=== PATIENT | female | born 1975 | race Hispanic/Latino ===

== ENCOUNTER 2018-01-24 14:09 | Outpatient (CLI) | payer BC | END 2018-01-24 14:10 | disposition home or self-care (01) | LOC: BICMAMMO 14:09 | PROVIDERS: ATTEND Obstetrics & Gynecology | DX: Z12.31 Encounter for screening mammogram for malignant neoplasm of breast (principal) | CPT/HCPCS: 77063; 77067 ==

== ENCOUNTER 2019-03-11 11:26 | Outpatient (CLI) | payer BC ==
--- NOTE | 2019-03-11 13:22 | MMO ---
Bilateral MAMMO Bilat Screen [facility]. CLINICAL HISTORY: Patient is 43 years old and is seen for screening. The patient has no family history of breast cancer. The patient has no personal history of cancer. VIEWS: The views performed were: bilateral craniocaudal with tomosynthesis and bilateral mediolateral oblique with tomosynthesis. FILMS COMPARED: The present examination has been compared to a prior imaging study performed at [facility] on 01/24/2018. MAMMOGRAM FINDINGS: The breasts are heterogeneously dense, which could obscure a lesion on mammography. There are no suspicious masses, suspicious calcifications, or new areas of architectural distortion. IMPRESSION: THERE IS NO MAMMOGRAPHIC EVIDENCE OF MALIGNANCY. A ROUTINE FOLLOW-UP MAMMOGRAM IN 1 YEAR IS RECOMMENDED. THE RESULTS OF THIS EXAM WERE SENT TO THE PATIENT. ACR BI-RADS Category 1 - Negative MAMMOGRAPHY NOTE: 1. A negative mammogram report should not delay a biopsy if a dominant of clinically suspicious mass is present. 2. Approximately 10% to 15% of breast cancers are not detected by mammography. 3. Adenosis and dense breasts may obscure an underlying neoplasm.
== END 2019-03-11 11:27 | disposition home or self-care (01) ==
LOC: BICMAMMO 11:26
PROVIDERS: ATTEND Obstetrics & Gynecology
DX: Z12.31 Encounter for screening mammogram for malignant neoplasm of breast (principal)
CPT/HCPCS: 77063; 77067

== ENCOUNTER 2019-12-27 07:49 | Emergency (ER) | payer BC ==
[2019-12-27] MEDS ORDERED: Ondansetron PF 4 MG/2 ML Vial ONE (08:15)
[2019-12-27] MEDS ORDERED: Fentanyl 100 MCG/2 ML VIAL ONE (08:15)
[2019-12-27] MEDS ORDERED: Ketorolac Tromethamine 30 MG/ML VIAL ONE (08:15)
[2019-12-27 08:25] LABS: BHCG - Serum Negative (NEGATIVE); Pregs Control Background? CLEAR/WHITE (CLR/WHITE); Pregs Control Bar Appear? YES (CONTROL BAR)
[2019-12-27 08:35] LABS: Bilirubin Negative (Negative); Blood, Urine Large (Negative); Glucose, Urine (Dipstick) Negative (Negative); Leukocyte Small (Negative); Nitrite Negative (Negative); Protein, Urine (Dipstick) 100 mg/dL (Neg-Trace); Urobilinogen 0.2 mg/dL (Less than 2)
[2019-12-27 08:37] LABS: ALT (SGPT) 31 U/L (8-55); AST (SGOT) 21 U/L (5-34); Albumin 4.6 g/dL (3.5-5.0); Alkaline Phosphatase 108 U/L (40-110); Anion Gap 13 mmol/L (10-20); BUN (Urea Nitrogen) 16 mg/dL (7.0-18.7); Bilirubin, Total 0.5 mg/dL (0.2-1.2); Calc. Creatinine Clearance 0 mL/min (70-130); Calcium 9.4 mg/dL (7.8-10.44); Carbon Dioxide 24 mmol/L (22-29); Chloride 108 mmol/L (98-107); Estimated GFR-MDRD Greater than 90; Globulin 2.6 g/dL (2.4-3.5); Glucose 133 mg/dL (70-105); Lipase 30 U/L (8-78); Potassium 3.9 mmol/L (3.5-5.1); Protein, Total 7.2 g/dL (6.0-8.3); Sodium 141 mmol/L (136-145)
[2019-12-27 08:49] LABS: Clarity Hazy (Clear)
[2019-12-27 08:51] LABS: Bacteria/HPF 2+ HPF (None Seen); Other Microscopic Description Less than 2 mL rec'd
[2019-12-27 09:07] LABS: #Eosinphils 0.1 thou/uL (0.0-0.7); #Lymphocytes 2.5 thou/uL (1.20-3.40); #Monocytes 0.4 thou/uL (0.11-0.59); %Basophils 0.3 % (0.0-1.0); %Eosinophils 1.7 % (0.0-10.0); %Lymphocytes 31.1 % (21.0-51.0); %Monocytes 5.2 % (0.0-10.0); %Neutrophils 61.6 % (42.0-75.0); Hemoglobin 12.2 g/dL (12.0-16.0); MDiff Complete? YES; Mean Corpuscular HGB CONC 33.3 g/dL (32.0-36.0); Mean Corpuscular Hemoglobin 19.7 pg (27.0-31.0); Mean Corpuscular Volume 59.2 fL (78.0-98.0); Mean Platelet Volume 7.2 fL (7.4-10.4); Microcytosis MODERATE=15-30 cells (100X) (0-5/hpf); Ovalocytes SLIGHT = 2-5 cells (100X) (0-1/hpf); Platelet Count 261 thou/uL (130-400); RBC Distribution Width 14.9 % (11.5-14.5); Red Blood Cell (RBC) Count 6.18 mill/uL (4.20-5.40); Reflex for Review?? YES; White Blood Cell (WBC) Count 8.1 thou/uL (4.8-10.8)
--- NOTE | 2019-12-27 09:16 | CT ---
CT Stone Protocol: 12/27/2019 8:11 AM HISTORY: Abdominal pain COMPARISON: None. TECHNIQUE: Multiple contiguous axial images were obtained and a CT of the abdomen and pelvis without IV contrast . Coronal and sagittal reformats were performed. FINDINGS: This examination is limited for the evaluation of solid organs and vascular structures due to the lac k of intravenous contrast. Lower Chest: within normal limits. Abdomen: Liver: within normal limits. Bile Ducts: Normal caliber. Gallbladder: No calcified gallstones. Normal caliber wall. Pancreas: within normal limits. Spleen: within normal limits. Adrenals: within normal limits. Kidneys: Mild right hydronephrosis. No left hydronephrosis. 1.5 cm cyst emanates from the midportion of the left kidney. Pelvis: Reproductive Organs: No pelvic masses. Ureters: There is a 3 mm calcification at the right ureterovesical junction causing mild right hydrou reter. Bladder: within normal limits. Bowel: Normal caliber. Mesenteric Lymph Nodes: No enlarged mesenteric lymph nodes. Peritoneum: No ascites or free air, no fluid collection. Vessels: Normal caliber aorta Retroperitoneum: within normal limits. Abdominal Wall: within normal limits. Bones: Unremarkable. IMPRESSION: Right distal ureteral calcification with mild right hydronephrosis.
== END 2019-12-27 09:45 | disposition home or self-care (01) ==
LOC: ERS 07:49
DX: N13.2 Hydronephrosis with renal and ureteral calculous obstruction (principal)
CPT/HCPCS: 74176; 80053; 81003; 81015; 83690; 84703; 85025; 85060; 96361; 96374; 96375; J1885; J2405; J3010

== ENCOUNTER 2020-05-17 11:07 | Outpatient (CLI) | payer BC ==
--- NOTE | 2020-05-17 11:58 | MMO ---
Bilateral MAMMO Bilat Screen [facility]. CLINICAL HISTORY: Patient is 44 years old and is seen for screening. The patient has no family history of breast cancer. The patient has no personal history of cancer. VIEWS: The views performed were: bilateral craniocaudal with tomosynthesis and bilateral mediolateral oblique with tomosynthesis. FILMS COMPARED: The present examination has been compared to prior imaging studies performed at [facility] on 01/24/2018 and 03/11/2019. This study has been interpreted with the assistance of computer-aided detection. MAMMOGRAM FINDINGS: The breasts are heterogeneously dense, which could obscure a lesion on mammography. There is an asymmetry seen in the CC view only seen in the inner region of the right breast. In the left breast, there are no suspicious masses, calcifications or areas of architectural distortion. IMPRESSION: ASYMMETRY IN THE RIGHT BREAST REQUIRES ADDITIONAL EVALUATION. RECOMMEND DIAGNOSTIC MAMMOGRAM. ULTRASOUND MAY ALSO PROVE USEFUL AT RECALL. THE RESULTS OF THIS EXAM WERE SENT TO THE PATIENT. ACR BI-RADS Category 0 - Incomplete: Need additional imaging evaluation. [facility] will notify the patient of the need for additional imaging services. MAMMOGRAPHY NOTE: 1. A negative mammogram report should not delay a biopsy if a dominant of clinically suspicious mass is present. 2. Approximately 10% to 15% of breast cancers are not detected by mammography. 3. Adenosis and dense breasts may obscure an underlying neoplasm. Reported by: RIVERA MOSLEY MD Electonically Signed: [id number]
== END 2020-05-17 11:08 | disposition home or self-care (01) ==
LOC: BICMAMMO 11:07
PROVIDERS: ATTEND Family Medicine
DX: Z12.31 Encounter for screening mammogram for malignant neoplasm of breast (principal); N64.89 Other specified disorders of breast
CPT/HCPCS: 77063; 77067

== ENCOUNTER 2020-05-20 10:29 | Outpatient (CLI) | payer BC ==
--- NOTE | 2020-05-20 11:02 | MMO ---
Right Breast MAMMO Unilat Diag [facility]. CLINICAL HISTORY: Patient is 44 years old and is seen for diagnostic exam. The patient has no family history of breast cancer. The patient has no personal history of cancer. VIEWS: The views performed were: right craniocaudal spot compression with tomosynthesis and right mediolateral with tomosynthesis. FILMS COMPARED: The present examination has been compared to prior imaging studies performed at [facility] on 01/24/2018, 03/11/2019 and 05/17/2020. This study has been interpreted with the assistance of computer-aided detection. MAMMOGRAM FINDINGS: The breast is heterogeneously dense, which could obscure a lesion on mammography. Additional views were performed. The previously seen abnormality is not definitely seen on the current study. There are no suspicious masses, suspicious calcifications, or new areas of architectural distortion. IMPRESSION: THERE IS NO MAMMOGRAPHIC EVIDENCE OF MALIGNANCY. A ROUTINE FOLLOW-UP MAMMOGRAM IN 1 YEAR IS RECOMMENDED. THE RESULTS OF THIS EXAM WERE SENT TO THE PATIENT. ACR BI-RADS Category 2 - Benign finding MAMMOGRAPHY NOTE: 1. A negative mammogram report should not delay a biopsy if a dominant of clinically suspicious mass is present. 2. Approximately 10% to 15% of breast cancers are not detected by mammography. 3. Adenosis and dense breasts may obscure an underlying neoplasm. Reported by: JUAN LUIS BOYD MD Electonically Signed: [id number]
== END 2020-05-20 10:30 | disposition home or self-care (01) ==
LOC: BICMAMMO 10:29
PROVIDERS: ATTEND Family Medicine
DX: N64.89 Other specified disorders of breast (principal)
CPT/HCPCS: G0279

== ENCOUNTER 2020-08-30 06:59 | Outpatient (CLI) | payer BC ==
--- NOTE | 2020-08-30 07:37 | ULT ---
Ultrasound of [facility] upper quadrant: 08/30/2020 COMPARISON:None available HISTORY:Right upper quadrant/epigastric pain, gas TECHNIQUE: Multiplanar grayscale sonographic imaging of [facility] upper quadrant provided FINDINGS:Visualized pancreas unremarkable. Pancreatic tail obscured by bowel gas. No focal liver lesi on or intrahepatic biliary dilatation. The common bile duct measures 3 mm, within normal limits. No gallbladder wall thickening or gallstones. The right kidney measures 11.2 cm in craniocaudal dimensio n and demonstrates no stone, hydronephrosis, or mass lesion. The autotransfusionist reports a negative Dobbs's sign. The hepatic parenchyma is mildly echogenic, suggesting a degree of steatosis. IMPRESSION:No sonographic evidence of cholelithiasis, cholecystitis, or biliary dilatation.
== END 2020-08-30 07:00 | disposition home or self-care (01) ==
LOC: BICULT 06:59
PROVIDERS: ATTEND Internal Medicine Gastroenterology
DX: R10.13 Epigastric pain (principal); R14.2 Eructation
CPT/HCPCS: 76705

== ENCOUNTER 2021-03-23 07:52 | Outpatient (CLI) | payer BC ==
[2021-03-23] MEDS ORDERED: Iopamidol-370 76% 500 ML 1 ML ONE (14:43)
== END 2021-03-23 07:53 | disposition home or self-care (01) ==
LOC: BICCT 07:52
PROVIDERS: ATTEND Family Medicine
DX: N28.89 Other specified disorders of kidney and ureter (principal); N28.1 Cyst of kidney, acquired; N83.201 Unspecified ovarian cyst, right side
CPT/HCPCS: 74178; Q9967

== ENCOUNTER 2021-07-07 15:45 | Outpatient (CLI) | payer BC | END 2021-07-07 15:46 | disposition home or self-care (01) | LOC: TBSIIMAG 15:45 → BICMRI 15:46 | PROVIDERS: ATTEND Orthopaedic Surgery | DX: M25.561 Pain in right knee (principal); M22.41 Chondromalacia patellae, right knee ==

== ENCOUNTER 2022-04-20 13:15 | Outpatient (CLI) | payer BC | END 2022-04-20 13:16 | disposition home or self-care (01) | LOC: CANPRECLI → TBSIIMAG 13:15 | PROVIDERS: ATTEND Specialist | DX: M54.12 Radiculopathy, cervical region (principal) | CPT/HCPCS: 72141 ==

== ENCOUNTER 2022-04-24 10:13 | Outpatient (CLI) | payer BC ==
[2022-04-24 11:49] LABS: #Eosinphils 0.1 10x3/uL (0.0-0.5); #Monocytes 0.3 10x3/uL (0.0-1.1); #Neutrophils 2.6 10x3/uL (1.5-8.4); %Basophils 0.4 % (0.0-2.0); %Eosinophils 1.8 % (0.0-6.0); %Lymphocytes 35.1 % (18.0-47.0); %Monocytes 5.5 % (0.0-10.0); %Neutrophils 56.8 % (40.0-75.0); Hemoglobin 11.1 g/dL (12.0-15.5); Mean Corpuscular HGB CONC 31.4 g/dL (32.0-36.0); Mean Corpuscular Hemoglobin 18.7 pg (27.0-33.0); Mean Corpuscular Volume 59.5 fl (81.6-98.3); Mean Platelet Volume 10.3 fl (7.4-10.4); Platelet Count 255 10x3/uL (150-450); RBC Distribution Width 18.2 % (11.5-14.5); Red Blood Cell (RBC) Count 5.95 10x6/uL (3.90-5.03); White Blood Cell (WBC) Count 4.5 10x3/uL (3.5-10.5)
[2022-04-24 12:18] LABS: Anion Gap 15 mmol/L (10-20); BUN (Urea Nitrogen) 10 mg/dL (7.0-18.7); Calc. Creatinine Clearance 0 mL/min (70-130); Calcium 8.9 mg/dL (7.8-10.44); Carbon Dioxide 24 mmol/L (22-29); Chloride 108 mmol/L (98-107); Glucose 128 mg/dL (70-105); Sodium 143 mmol/L (136-145)
[2022-04-24 13:26] LABS: Microcytosis MARKED = >30 cells (100X) (0-5/hpf)
[2022-04-24 13:27] LABS: Anisocytosis MODERATE=16-30 cells (100X) (0-5/hpf); Polychromasia SLIGHT = 2-3 cells (100X) (0-2/hpf)
[2022-04-24 13:28] LABS: Macrocytosis SLIGHT = 6-15 cells (100X) (0-5/hpf)
[2022-04-24 13:29] LABS: Platelet Morphology Comment Appears Adequate
[2022-04-24 13:30] LABS: Reflex for Review?? YES
[2022-04-24 13:31] LABS: Elliptocytes SLIGHT = 2-5 cells (100X) (0-1/hpf)
== END 2022-04-24 10:14 | disposition home or self-care (01) ==
LOC: LABBT 10:13
PROVIDERS: ATTEND Surgery
DX: Z01.812 Encounter for preprocedural laboratory examination (principal); K62.0 Anal polyp; Z20.822 Contact with and (suspected) exposure to COVID-19
CPT/HCPCS: 80048; 85025; 85060; U0003; U0005

== ENCOUNTER 2022-04-27 06:16 | Day surgery (SDC) | payer BC ==
[2022-04-24 13:06] VITALS: BMI 31.9
[2022-04-27] MEDS ORDERED: Bupivacaine 0.25% HCL 30 ML VIAL ONE (06:35)
[2022-04-27] MEDS ORDERED: Lidocaine 1% w/Epinephrine 1:100K 20 ML VIAL ONE (06:35)
[2022-04-27] MEDS ORDERED: Acetaminophen 500 MG TAB ONE (06:48)
[2022-04-27] MEDS ORDERED: Lidocaine 1% MPF 2 ML VIAL ONE (06:55)
[2022-04-27] MEDS ORDERED: CEFAZOLIN 2 GM VIAL ONE (06:55)
[2022-04-27] MEDS ORDERED: Sodium Chloride 0.9% 100 ML ONE (06:55)
[2022-04-27] MEDS ORDERED: fentaNYL Citrate/PF 100 MCG/2 ML SYRINGE ONE (07:07)
[2022-04-27] MEDS ORDERED: Midazolam HCl 2 mg/2 ml Vial ONE (07:45)
[2022-04-27] MEDS ORDERED: Propofol 500 MG/50 ML VIAL ONE (07:48)
[2022-04-27] MEDS ORDERED: Lidocaine 2% Jelly 5 ML TUBE ONE (08:51)
== END 2022-04-27 12:20 | disposition home or self-care (01) ==
LOC: SDC 06:16
PROVIDERS: ATTEND Surgery
PROC: 0DBQ7ZX Excision of Anus, Via Natural or Artificial Opening, Diagnostic (ICD-10-PCS; principal; 2022-04-27)
DX: K62.0 Anal polyp (principal); Z79.899 Other long term (current) drug therapy
CPT/HCPCS: 88304; J0690; J2250; J2704; J3490; S0020

== ENCOUNTER 2022-09-25 12:06 | Outpatient (CLI) | payer BC | END 2022-09-25 12:07 | disposition home or self-care (01) | LOC: NM 12:06 | PROVIDERS: ATTEND Internal Medicine Gastroenterology | DX: R10.11 Right upper quadrant pain (principal); K75.81 Nonalcoholic steatohepatitis (NASH); K62.0 Anal polyp; D50.9 Iron deficiency anemia, unspecified; E66.9 Obesity, unspecified | CPT/HCPCS: 78227; A9537 ==

== ENCOUNTER 2022-11-14 14:55 | Outpatient (CLI) | payer BC | END 2022-11-14 14:56 | disposition home or self-care (01) | LOC: BICMAMMO 14:55 | PROVIDERS: ATTEND Family Medicine | DX: Z12.31 Encounter for screening mammogram for malignant neoplasm of breast (principal) | CPT/HCPCS: 77063; 77067 ==

== ENCOUNTER 2024-10-06 15:10 | Outpatient (CLI) | payer BC | END 2024-10-06 15:11 | disposition home or self-care (01) | LOC: BICMAMMO 15:10 | PROVIDERS: ATTEND Family Medicine | DX: Z12.31 Encounter for screening mammogram for malignant neoplasm of breast (principal) | CPT/HCPCS: 77063; 77067 ==